=== PATIENT | female | born 1990 | race American Indian/Alaskan Native ===

== ENCOUNTER 2016-10-09 20:11 | Emergency (ER) | payer SELFPAY ==
[2016-10-09 21:03] VITALS: BP 103/69
== END 2016-10-10 04:00 | disposition left against medical advice (07) ==
LOC: ED 20:11
DX: Z53.21 Procedure and treatment not carried out due to patient leaving prior to being seen by health care provider (principal)
CPT/HCPCS: 93005; 93010